=== PATIENT | male | born 2000 | race Caucasian/White ===

== ENCOUNTER 2023-11-19 11:15 | Outpatient (AMB) | payer OTHER, SELFPAY ==
--- NOTE | 2023-11-19 11:24 | AM.OFFWIN_ITS ---
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 Started 3 days ago Patient Tobacco Use Status: Never used Tobacco Allergies No Known Allergies Allergy (Verified 11/19/23 11:24) Do you need a note to return to daycare/school/sports/work: No HPI HPI Comments History of Present Illness Details He presents to office with headaches Aurora like nerve pain into sinuses and R sided eye/forehead Similar pain when scrunching nose Pain was intermittent and mild This am he was showering and used Q tip in ear and felt R sided ear pain with some blood No fever or chills No vision changes Denies hx of headaches. Sometimes has neck pain due to R AC joint pain Ibuprofen used two days ago which helped He admits to congestion recently but denies clogged No fatigue or covid exposure known No cough PFSH Social History Patient Tobacco Use Status: Never used Tobacco Review of Systems Const Denies chills, Denies fatigue, Denies fever(s) and Reports headache(s) Eyes Denies blurry vision, Denies exophthalmos, Denies change in vision, Denies eye discharge, Denies loss of vision, Reports eye pain (Pain around R orbit occasionally) and Denies photophobia ENT Denies dizziness, Reports otalgia (blood in R ear today), Reports headache(s), Reports nasal congestion, Reports sinus pressure and Denies sore throat Card Denies syncope Resp Denies cough Neuro Denies dizziness, Denies syncope, Reports headache(s) and Denies loss of vision Endo Denies fatigue Physical Exam Vital Signs: Last Vital Signs Temp 98.1 F 11/19/23 11:25 Pulse 85 11/19/23 11:25 BP 110/80 11/19/23 11:25 Pulse Ox 98 11/19/23 11:25 Oxygen Delivery Method Room Air 11/19/23 11:25 BMI result Body Mass Index 27.8 General: Non-toxic, NAD. Speaking full sentences. Skin: Warm dry throughout. No facial edema, erythema or rashes Eye: EOMI, PERRL. No pain with EOMs. No conjunctivl erythema or discharge HENT: Airway patent. Uvula midline. No pharyngeal erythema or edema. No INSTRUCTIONAL TECHNOLOGY SPECIALIST. Bilateral canals clear aside from R canal pt has small bright red scab to anterior mid canal. TM non-erythematous, non-bulging. No TM perforation or hemotympanum noted bilaterally. Minimal R sided frontal tenderness to palpation. Respiratory: CTA bilaterally. No wheezes, rales or rhonchi Cardiac: RRR. No murmur MSK: Full ROM extremities. Neurology: A/O No aphasia or facial droop. Gait without abnormality Psych: Good mood and affect Eyes Direct Ophthalmoscopy: No photophobia Assessment & Plan Assessment & Plan (1) Headache: Code(s): R51.9 - Headache, unspecified Qualifiers: Headache type: cluster Headache chronicity pattern: episodic headache Intractability: not intractable Qualified Code(s): G44.019 - Episodic cluster headache, not intractable Plan: Patient seen and evaluated. Non-toxic appearing. No large fluid behind TM and symptoms not consistent with sinusitis Ibuprofen prn S/S of ER concern discussed Patient gave verbal understanding and had no additional questions or concerns at time of discharge All questions answered (2) Abrasion of ear canal: Code(s): S00.419A - Abrasion of unspecified ear, initial encounter Qualifiers: Encounter type: initial encounter Laterality: right Qualified Code(s): S00.411A - Abrasion of right ear, initial encounter Plan: Avoidd Q tip use No OM or OE Coding Level of Care Code New Pt Level 3 (77856) Diagnoses Episodic cluster headache, not intractable G44.019 Headache type: cluster Headache chronicity pattern: episodic headache Intractability: not intractable Abrasion of right ear canal, initial encounter S00.411A Encounter type: initial encounter Laterality: right
[2023-11-19 11:25] VITALS: BP 110/80; PULSE 85; TEMP 36.7; O2SAT 98; BMI 27.8
== END 2023-11-19 12:01 | disposition home or self-care (01) ==
PROVIDERS: PCP Pediatrics; Visit Provider Physician Assistant
DX: G44.019 Episodic cluster headache, not intractable (principal); S00.411A Abrasion of right ear, initial encounter
CPT/HCPCS: 99203

== ENCOUNTER 2025-01-27 18:37 | Emergency (ER) | payer OTHER, SELFPAY ==
--- NOTE | 2025-01-27 19:18 | ED_ITS ---
HPI - Neuro Symptoms/Deficit General Chief Complaint: General Medical Stated Complaint: right side of face drooping feeling Time Seen by Provider: 01/27/25 23:09 Related Data Home Medications ?Medication ?Instructions ?Recorded ?Confirmed No Known Home Meds 11/19/23 11/19/23 Allergies Allergy/AdvReac Type Severity Reaction Status Date / Time No Known Allergies Allergy Verified 01/27/25 19:22 [facility] Social History Social History Patient Tobacco Use Status: Never used Tobacco Advance Directives: No Advance Directives Information Provided: No Do you have a plan to hurt others: No Plan Physical Exam 2 Vital Signs: Vital Signs: Last Vital Signs Temp 98.4 F 01/27/25 21:54 Pulse 76 01/27/25 21:54 Resp 14 01/27/25 21:54 BP 105/61 01/27/25 21:54 Pulse Ox 99 01/27/25 21:54 O2 Del Method Room Air 01/27/25 21:54 BMI result Body Mass Index 18.1 Course Course Course Narrative: This is an RME: Additional HPI, ROS, PE not included below will be deferred to primary provider. RME assessment and note performed by: Agustina De Paz PA-C This is a 27-wwmp-zgs-male who presents to the ER with complaints of right sided facial heaviness since today. Reports he thought he had right sided facial drooping this afternoon. No appreciable neuro signs on examination. NIH stroke scale 0. He is neurologically intact. Pt also examined by Dr. Palomo. At this time no appreciable clinical signs, will defer on imaging at this time. Plan: Labs, further ER eval needed Medical Decision Making Lab Data 01/27/25 19:40 01/27/25 19:40 Labs: Lab Results 01/27/25 Range/Units 19:40 WBC 11.7 H (4.8-10.8) X10*3/uL RBC 5.01 (4.60-5.80) X10*6/uL Hgb 15.5 (14.0-18.0) g/dl Hct 44.1 (42.0-52.0) % MCV 88.0 (80.0-98.0) fL MCH 30.9 (27.0-33.0) pg MCHC 35.1 (31.0-36.0) g/dl RDW 11.6 (11.0-16.0) % Plt Count 315 (160-400) X10*3/uL MPV 9.8 (9.4-12.4) fL Immature Gran % (Auto) 0.3 (0.0-0.4) % Neut % (Auto) 64.2 (45-73) % Lymph % (Auto) 25.3 (20-40) % [place] % (Auto) 8.6 (2-11) % Eos % (Auto) 0.9 (0-4) % Baso % (Auto) 0.7 (0-2) % Lymph # (Auto) 3.0 (1.2-4.9) X10*3/uL [place] # (Auto) 1.0 (0.1-1.2) X10*3/uL Eos # (Auto) 0.1 (0.0-0.4) X10*3/uL Baso # (Auto) 0.1 (0.0-0.2) X10*3/uL Abs Immat Gran (auto) 0.04 H (0.00-0.03) X10*3/uL Absolute Neuts (auto) 7.5 (2.0-8.3) x10*3/uL Absolute Nucleated RBC 0.000 (0.0-0.012) X10*3/uL Nucleated RBC % (auto) 0.0 (0.0-0.2) /100WBC ESR 2 (0-15) MM/HR Sodium 140 (135-145) mmol/L Potassium 4.8 (3.3-5.1) mmol/L Chloride 106 (96-108) mmol/L Carbon Dioxide 29 (22-29) mmol/L Anion Gap 10 L (12-20) BUN 14 (9-16) mg/dL Creatinine 1.17 (0.5-1.4) mg/dL Estim Creat Clear Calc 80.5 Estimated GFR > 60 Random Glucose 105 (60-115) mg/dL Calcium 9.1 (8.4-10.2) mg/dL Magnesium 2.3 (1.6-2.6) mg/dL Total Bilirubin 0.6 (0.0-1.0) mg/dL Direct Bilirubin 0.2 (0.0-0.5) mg/dL AST 45 H (5-37) U/L ALT 29 (0-40) U/L Alkaline Phosphatase 108 (39-117) U/L C-Reactive Protein < 0.10 (< or = 0.50) mg/dL Total Protein 7.5 (6.5-8.0) g/dL Albumin 4.8 (3.5-5.0) g/dL Discharge Plan Discharge Prescriptions: No Action No Known Home Meds Print Language: Afghan
[2025-01-27 19:20] VITALS: BP 134/70; PULSE 68; RESP 16; TEMP 36.8; O2SAT 98; BMI 18.1
[2025-01-27 19:45] LABS: MANUAL DIFF FLAG NO
[2025-01-27 19:46] LABS: Hematocrit 44.1 % (42.0-52.0); Hemoglobin 15.5 g/dl (14.0-18.0); Imm Gran Abs Auto 0.04 X10*3/uL (0.00-0.03); Imm Gran Pct Auto 0.3 % (0.0-0.4); Lymphocytes Absolute Auto 3.0 X10*3/uL (1.2-4.9); Mean Corpuscular HGB Conc 35.1 g/dl (31.0-36.0); Mean Corpuscular Hemoglobin 30.9 pg (27.0-33.0); Mean Corpuscular Volume 88.0 fL (80.0-98.0); NRBC Abs Auto 0.000 X10*3/uL (0.0-0.012); NRBC Pct Auto 0.0 /100WBC (0.0-0.2); Platelet Count 315 X10*3/uL (160-400); Red Blood Count 5.01 X10*6/uL (4.60-5.80); White Blood Count 11.7 X10*3/uL (4.8-10.8)
[2025-01-27 20:04] LABS: Alanine Aminotransferase 29 U/L (0-40); Albumin Level 4.8 g/dL (3.5-5.0); Alkaline Phosphatase 108 U/L (39-117); Anion Gap 10 (12-20); Aspartate Amino Transferase 45 U/L (5-37); Blood Urea Nitrogen 14 mg/dL (9-16); Calcium 9.1 mg/dL (8.4-10.2); Carbon Dioxide 29 mmol/L (22-29); Chloride 106 mmol/L (96-108); Creatinine Clr Calc Pharmacy 80.5; Estimated Glomerular Filt Rate > 60; Magnesium 2.3 mg/dL (1.6-2.6); Potassium 4.8 mmol/L (3.3-5.1); Sodium 140 mmol/L (135-145); Total Protein 7.5 g/dL (6.5-8.0)
[2025-01-27 21:54] VITALS: BP 105/61; PULSE 76; RESP 14; TEMP 36.9; O2SAT 99
--- OUTSIDE RECORDS SUMMARY | 2025-01-27 22:06 | XMS_ITS | Patient Health Record ---
Author Organization [facility] [address] Address [address] [place] [address] Care Team Providers Care Evp Name Role Phone MARIKA FABIAN Unavailable [phone] Allergies No Known Allergies Reason For Referral No Information Medications Medication SIG (Take, Route, Frequency, Duration) Notes Start Date End Date Status Adderall XR 10 MG 1 capsule in the mor magdy Orally Once a day Active Amphetamine-Dextroamphetam ine 10 MG Oral; Duration: 30 Days Acti ve Problems Problem Type SNOMED Code ICD Code Onset Dates Problem Status W/U Status Risk Notes Problem Avitaminosis D (46058685) Avitaminosis D (E55.9) Active confirmed Problem Attention deficit hyperactivity disorder (221776202) ADHD (attention deficit hyperactivity disorder), combined type (F90.2) Active confirmed Vital Signs Heart Rate 68 /min 01/10/2025 Blood pressure diastolic 70 mm Hg 01/10/2025 Oximetry 98 % 01/10/2025 Height 72 in 01/10/2025 Blood pressure systolic 110 mm Hg 01/10/2025 Weight 197.8 lbs 01/10/2025 BMI 26.82 kg/m2 01/10/2025 Encounters Encounter Location Date Provider Diagnosis [facility] [address] [address] 01/10/2025 MARIKA FABIAN Encounter for examination of blood pressure without abnormal findings Z01.30 and ADHD (attention deficit hyperactivity disorder), combined type F90.2 Assessments Encounter Date Diagnosis (ICD Code) Assessment Notes Treatment Notes Treatment Clinical Notes Section Notes 01/10/2025 Encounter for examination of blood pressure without abnormal findings (ICD-10 - Z01.30) Will see the patient back for CPE and comprehensive labs Of note, some information is being carried forward from prior records for informational purposes only and is being cited so that efficiency, safety and quality of the patient's care is not compromised This note was prepared using voice recognition software and direct typing Please excuse inadvertent track inspecting supervisor or typing errors, or uncorrected word substitutions Although every attempt has been made by the provider to proofread this document, occasional misspellings and typographical errors may still be present Due to the previous pandemic, and the use of personal protective equipment (PPE) This may decrease voice recognition accuracy Inadvertent track inspecting supervisor errors may occur 01/10/2025 ADHD (attention deficit hyperactivity disorder), combined type (ICD-10 - F90.2) Will see the patient back for CPE and comprehensive labs Of note, some information is being carried forward from prior records for informational purposes only and is being cited so that efficiency, safety and quality of the patient's care is not compromised This note was prepared using voice recognition software and direct typing Please excuse inadvertent track inspecting supervisor or typing errors, or uncorrected word substitutions Although every attempt has been made by the provider to proofread this document, occasional misspellings and typographical errors may still be present Due to the previous pandemic, and the use of personal protective equipment (PPE) This may decrease voice recognition accuracy Inadvertent track inspecting supervisor errors may occur Plan Of Treatment Pending Test Test Name Order Date LIPID PANEL, STANDARD 01/10/2025 COMPREHENSIVE METABOLIC PANEL 01/10/2025 CBC (INCLUDES DIFF/PLT) 01/10/2025 URINALYSIS, COMPLETE 01/10/2025 HEMOGLOBIN A1c 01/10/2025 TSH 01/10/2025 VITAMIN D,25-OH,TOTAL,IA 01/10/2025 Next Appt Details Provider Name:MARIKA FABIAN, 02/10/2025 02:00:00 PM, [address], [facility] [address], [place], [address], Insurance Providers Payer Name Payer Address Payer Phone Subscriber Number Group Number Insured Name Patient Relationship to Insured Coverage Start Date Coverage End Date [employer] [address] [place] [phone] [id number] CHARLINE VAZQUEZ Self - patient is the insured
--- OUTSIDE RECORDS SUMMARY | 2025-01-27 22:07 | XMS_ITS | Encounter Summary ---
Author Organization [facility] Address [address] [place] [address] Phone Care Team Providers Care Assistant Boiler Operator Name Role Phone Malik Vasquez MD Primary Care Provider Herbert vidales Encounter Details Date Type Department Care Team (Late st Contact Info) Description 06/20/2016 Documentation [facility] [address] [place] [address] Family Medicine, Physician [address] [place] [address] Social History Tobacco Use Types Packs/Day Years Used Date Smoking Tobacco: Never Comments:Never smoker Sex and Gender Information Value Date Recorded Sex Assigned at Not on file Legal Sex Male 5:07 PM EDT Gender Identity Not on file Sexual Orientation Straight 10/26/2019 11 :34 AM EDT documented as of this encounter Plan of Treatment Not on file documented as of this encounter Visit Diagnoses Not on filedocumented in this encounter Care Teams Assistant Boiler Operator Relationship Specialty Start Date End Date Malik Vasquez MD PCP - General Pediatrics 10/13/19 08/12/22 documented as of this encounter
--- OUTSIDE RECORDS SUMMARY | 2025-01-27 22:07 | XMS_ITS | Encounter Summary ---
Author Organization [facility] Address [address] [place] [address] [place] [address] Phone Care Team Providers Care Tailing Machine Operator Name Role Phone Malik Giraldo MD Primary Care Provider [phone] Encounter Details Date Type Department Care Team (Late st Contact Info) Description 05/20/2017 Procedure Pass [address] [place] [address] Social History Tobacco Use Types Packs/Day Years Used Date Smoking Tobacco: Never Smokeless Tobacco: Never Alcohol Use Standard Drinks/Week Comments No 0 (1 standard drink = 0.6 oz pur e alcohol) Sex and Gender Information Value Date Recorded Sex Assigned at Not on file Legal Sex Male 2:41 PM EST Gender Identity Not on file Sexual Orientation Not on file documented as of this encounter Last Filed Vital Signs Vital Sign Reading Time Taken Comments Blood Pressure - - Pulse - - Temperature - - Respiratory Rate - - Oxygen Saturation - - Inhaled Oxygen Concentration - - Weight 83.9 kg (185 lb) 05/22/2017 3:22 PM EST Height 182.9 cm (6') 05/22/2017 3:22 PM EST Body Mass Index 25.09 05/22/2017 3:22 PM EST Body Mass Index Percentile 84.01% 05/22/2017 3:2 2 PM EST Growth Chart: CDC (Boys, 2-2 0 Years) documented in this encounter Plan of Treatment Not on file documented as of this encounter Visit Diagnoses Not on filedocumented in this encounter Care Teams Tailing Machine Operator Relationship Specialty Start Date End Date Malik Giraldo MD [address] [place] [address] [place] [address] PCP - General Pediatrics 05/19/17 documented as of this encounter Additional Source Comments The information contained in this document represents components of the legal health record. It is not the complete legal health record.[facility]
--- OUTSIDE RECORDS SUMMARY | 2025-01-27 22:07 | XMS_ITS | Encounter Summary ---
Author Organization [facility] Address [address] [place] [address] Phone Care Team Providers Care Dental Instrument Maker Name Role Phone Malik Vasquez MD Primary Care Provider Herbert vidales Encounter Details Date Type Department Care Team (Late st Contact Info) Description 12/19/2016 Conversion Encounter [facility] - [address] [address] Social History Tobacco Use Types Packs/Day Years [...] on filedocumented in this encounter Care Teams Dental Instrument Maker Relationship Specialty Start Date End Date Malik Vasquez MD PCP - General Pediatrics 10/13/19 08/12/22 documented as of this encounter
--- OUTSIDE RECORDS SUMMARY | 2025-01-27 22:07 | XMS_ITS | Encounter Summary ---
Author Organization [facility] Address [address] [place] [address] Phone Care Team Providers Care Business Unit Director Name Role Phone Malik Giraldo MD Primary Care Provider [phone]- [phone] Encounter Details Date Type Department Care Team (Late st Contact Info) Description 05/27/2017 Ancillary Orders [facility],Outside Imaging [address] [place] [address] System, Provider Not In, [place] [address] Social History Tobacco Use Types Packs/Day Years [...] on file documented as of this encounter Plan of Treatment Not on file documented as of this encounter Results * XR Upper Extremity Outside (No Interpretation) (05/15/2017 12:15 AM EST) Narrative SYSTEMGENERATED, DOCUMENTATION - 05/27/2017 1:13 PM EST This study is for PACS storage only and not for interpretation. us Provider Not In System PhD IMG OUTSIDE IMAGING W /OUT INTERPRETATION Final Result documented in this encounter Visit Diagnoses Not on filedocumented in this encounter Care Teams Business Unit Director Relationship Specialty Start Date End Date Malik Giraldo MD [address] [place] [address] PCP - General Pediatrics 05/19/17 documented as of this encounter Additional Source Comments The information contained in this document represents components of the legal health record. It is not the complete legal health record.[facility]
--- OUTSIDE RECORDS SUMMARY | 2025-01-27 22:07 | XMS_ITS | Encounter Summary ---
Author Organization [facility] Address [address] [place] [address] Phone Care Team Providers Care Clinical Staff Anesthesiologist Name Role Phone Malik Giraldo MD Primary Care Provider [phone]- [phone] Encounter Details Date Type Department Care Team (Late st Contact Info) Description 05/27/2017 Ancillary Orders [facility],Outside Imaging [address] [place] [address] System, Provider Not In, [place] [address] Social History Tobacco Use Types Packs/Day Years [...] XR Upper Extremity Outside (No Interpretation) (05/15/2017 12:00 AM EST) Narrative SYSTEMGENERATED, DOCUMENTATION - 05/27/2017 1:11 PM EST This study is for PACS storage only and not for interpretation. us Provider Not In System PhD IMG OUTSIDE IMAGING W /OUT INTERPRETATION Final Result documented in this encounter Visit Diagnoses Not on filedocumented in this encounter Care Teams Clinical Staff Anesthesiologist Relationship Specialty Start Date End Date Malik Giraldo MD [address] [place] [address] PCP - General Pediatrics 05/19/17 documented as of this encounter Additional Source Comments The information contained in this document represents components of the legal health record. It is not the complete legal health record.[facility]
--- OUTSIDE RECORDS SUMMARY | 2025-01-27 22:07 | XMS_ITS | Clinical Summary ---
Author Organization [facility] Address [address] [facility] [address] [place] [address] Phone Care Team Providers Care Ceramic Research Engineer Name Role Phone Malik Giraldo MD Primary Care Provider [phone] Allergies No known active allergies Medications No known medications Active Problems Problem Noted Date Diagnosed Date Lesion of right humerus 05/22/2017 Family History Relation Status Comments Father Alive Mother Alive Social History Tobacco Use Types Packs/Day Years Used Date Smoking Tobacco: Never Smokeless Tobacco: Never Alcohol Use Standard Drinks/Week Comments No 0 (1 standard drink = 0.6 oz pur e alcohol) Education Answer Date Recorded Are you interested in more education? Not on kal e 08/30/2022 Are you concerned about learning? Not on file 08/30/2022 No 08/30/2022 No 08/30/2022 Digital Access Answer Date Recorded No 09/28/2022 No 09/28/2022 No 09/28/2022 Reliable internet access at home? Not on file 09/28/2022 Device with a working camera? Not on file Sex and Gender Information Value Date Recorded Sex Assigned at Not on file Legal Sex Male 2:41 PM EST Gender Identity Not on file Sexual Orientation Not on file Last Filed Vital Signs Vital Sign Reading Time Taken Comments Blood Pressure - - Pulse - - Temperature - - Respiratory Rate - - Oxygen Saturation - - Inhaled Oxygen Concentration - - Weight 83.9 kg (185 lb) 05/22/2017 3:22 PM EST Height 182.9 cm (6') 05/22/2017 3:22 PM EST Body Mass Index 25.09 05/22/2017 3:22 PM EST Plan of Treatment Health Maintenance Due Date Last Done Comments DEPRESSION SCREENING 2011 SMOKING Hx and SMOKELESS TOBACCO SCREENING 11/18/2012 HEPATITIS C SCREENING 11/18/2017 HIV ONE-TIME SCREENING (18-65 YEARS) 11/18/2017 Adult Td,Tdap Booster 12/18/2021 12/19/2011 INFLUENZA VACCINE (#1) 2024 , 04/29/2018, 04/29/2017, Additional history exists COVID-19 VACCINE ( season) 2025 HIB VACCINES Completed 11/20/2000, 05/05, 03/24/2000, Additional history exists PNEUMOCOCCAL VACCINES (0-49 years) Aged Out 11/20/2000, 05/21/2000, 03/24/2000, Additional history exists No longer eligible based on patient's age to complete this topic HEPATITIS A VACCINES Completed 01/18/2009, 10/06/19 08 HPV VACCINES Completed 10/03/2015, 03/06, 07/20/2014 MENINGOCOCCAL VACCINES (ACWY) Completed 12/19/2016, 12/19/2011 MENINGOCOCCAL VACCINES (B) Completed 10/26/2020, Medical Devices Not on file Insurance [employer] PPO Member Subscriber Plan / Payer (Ef fective 2016-Present) Name:Arley Vazquez Relation to Subscriber:Child Name:WENDY VAZQUEZ Date of :1959 (Home) Address: [address] Payer ID:[id number] (NAIC) Type:PPO Address: [address] [place] [id number] KELLY Ramirez CIGNA PPO KELLY Ramirez CIGNA PPO CIGNA PPO CIGNA PPO CIGNA PPO Member Subscriber Plan / Payer (Ef fective 2016-Present) Name:Arley Vazquez Relation to Subscriber:Child Name:WENDY VAZQUEZ Date of :1959 (Home) Address: [address] [place] [address] Payer ID:[id number] (NAIC) Type:PPO Address: [address] [place] [id number] KELLY Ramirez CIG[employer]ILMER PPO Care Teams Ceramic Research Engineer Relationship Specialty Start Date End Date Malik Giraldo MD [address] [place] [address] [place] [address] PCP - General Pediatrics 05/19/17 Additional Source Comments The information contained in this document represents components of the legal health record. It is not the complete legal health record.[facility]
--- OUTSIDE RECORDS SUMMARY | 2025-01-27 22:08 | XMS_ITS | Clinical Summary ---
Author Organization [facility] Address [address] [place] [id number] Phone Care Team Providers Care Packer Name Role Phone Unavailable Primary Care Provider Unavailabl e Allergies No known active allergies Medications No known medications Active Problems Problem Noted Date Diagnosed Date Sacral pain 12/23/2019 Overview (12/23/2019): Sacral ileitis vs. Other injury Assessment & Plan (10/27/2020 8:41 AM EDT): resolved Assessment & Plan (12/23/2019 12:50 PM EDT): Will refer. 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 Assessment & Plan (10/26/2019 9:09 AM EDT): Call if ever causes pain Immunizations Immunization Administration Dates Next Due DTaP 11/21/2003, 1,05/21/2000,03/24,01/31/2000 HPV Vaccine 9 Valent 10/03/2015,03/29/2015 HPV, Quadrivalent 07/20/2014 Hep A, ped/adol 01/18/2009,10/06/2007 Hep B, ped/adol 05/21/2000,1999,1999 Hib (PRP-T) 11/20/2000, 1,03/24/2000,01/30 IPV 11/21/2003, 1,03/24/2000,01/30 Influenza, injectable, MDCK, preservative free, quadrivalent 04/25/2016 Influenza, injectable, quadrivalent 03/29/2015,1 Influenza, injectable, quadr ivalent, preservative free 05/10/2020,04/29/2018,04/29/2017,02/24 Influenza, injectable,raimundo valent, preservative free, pediatric 02/15/2009 MMR 11/21/2003,11/20/2000 Meningococcal B Trumenba 10/26/2020,10/26/2019 Meningococcal Conj (Menactra) MCV4P 12/19/2016,0 12/19/2011 Pneumococcal Conjugate 11/20/2000,2000,03/24/2000,01/30 Tdap 12/19/2011 Varicella 01/18/2009,01/18/2001,11/20/2000 Family History Medical History Relation Name Comments No Known Problems Brother marquise No Known Problems Father ilan No Known Problems Maternal Grandfather No Known Problems Maternal Grandmother No Known Problems Mother tom No Known Problems Paternal Grandfather No Known Problems Paternal Grandmother Relation Name Status Comments Brother marquise Alive Brother: Alive and well Father ilan Alive Maternal Grandfather Maternal Grandmother Mother tom Alive Other No family histo ry of ADD/ADHD, No family history of Sudden , No family history of Strabismus, No family history of Deafness, No family history of Stroke, , No family history of Obesity, No family history of Migraines, , No family history of Heart disease, No family history of Seizure disorder Paternal Grandfather Paternal Grandmother Social History Tobacco Use Types Packs/Day Years Used Date Smoking Tobacco: Never Smokeless Tobacco: Never Comments:Never smoker Alcohol Use Standard Drinks/Week Comments Yes 0 (1 standard drink = 0.6 oz pur e alcohol) occ ETOH Hunger/Food Answer Date Recorded In the last 12 months, did y ou or your family ever eat less than you felt you should because there wasn't enough money for food? No 10/26/2020 Stable Housing Answer Date Recorded Are you worried that in the next 2 months you may not have stable housing? No 10/26/2020 Transportation Concerns Answer Date Rec orded In the last 12 months, have you or your family ever had to go without healthcare because you didn't have a way to get there? No 10/26/2020 Hazards in Home Answer Date Recorded Think about the place you li ve. Do you have problems with any of the following? Pests (mice or roaches), mold, no/not working smoke detectors, water leaks, no window guards. No 2020 Financing Utilities Answer Date Recorde d In the last 12 months, has t he electric, gas, oil, or water company threatened to shut off your services in your home? No 10/26/2020 Safety at Home Answer Date Recorded Are you or your family worried about feeling saf e in your home? No 10/26/2020 Outside Support Answer Date Recorded Do you feel that you need mo re support from other people or programs to help you care for yourself or your family? No 10/26/2020 Understanding Health Concerns Answer Da te Recorded Do you need help understandi ng your or your child's healthcare needs (diagnosis, medications, plan, etc.)? No 10/26/2020 Financing Health Concerns Answer Date R ecorded In the last 12 months, was t here a time when your child needed to see a doctor or get medications or supplies but could not because of cost? No 10/26/2020 Missing School or Work Answer Date Tavo rded Did you or your child miss s chool or work because of a health problem that could have been avoided? No 10/26/2020 Sex and Gender Information Value Date Recorded Sex Assigned at Not on file Legal Sex Male 5:07 PM EDT Gender Identity Not on file Sexual Orientation Straight 10/26/2019 11 :34 AM EDT Last Filed Vital Signs Vital Sign Reading Time Taken Comments Blood Pressure 103/62 10/26/2020 9:15 AM EDT Pulse 63 10/26/2020 9:15 AM EDT Temperature 36.6 C (97.8 F) 10/26/2020 9:15 AM EDT Respiratory Rate - - Oxygen Saturation - - Inhaled Oxygen Concentration - - Weight 87.1 kg (192 lb) 10/26/2020 9:15 AM EDT Height 180.3 cm (5' 11 ) 10/26/2020 9:15 AM EDT Body Mass Index 26.78 10/26/2020 9:15 AM EDT Plan of Treatment Health Maintenance Due Date Last Done Comments DTaP,Tdap,and Td Vaccines (7 - Td or Tdap) 12/18/2021 12/19/2011, 11/21/2003, 02/14/2001, Additional history exists Influenza Vaccines (#1) 2024 05/10/19, 04/29/2018, 04/29/2017, Additional history exists COVID-19 Vaccine ( - 2023-2 5 season) 2025 Hepatitis B Vaccines Completed 05/21/2000, 1999, 1999 HIB Vaccines Completed 11/20/2000, 05/05, 03/24/2000, Additional history exists Pneumococcal Vaccine Completed 11/20/2000, 05/21/2000, 03/24/2000, Additional history exists IPV Vaccines Completed 11/21/2003, 02/02, 03/24/2000, Additional history exists MMR Vaccines Completed 11/21/2003, 11/20/2000 Hepatitis A Vaccines Completed 01/18/2009, 10/06/19 08 Varicella Vaccines Completed 01/18/2009, 0 01/18/2001, 11/20/2000 HPV Vaccines Completed 10/03/2015, 03/06, 07/20/2014 Meningococcal Vaccine Completed 12/19/2016, 012 Men B Vaccine Completed 10/26/2020, 10/26/2019 Insurance [employer]
--- NOTE | 2025-01-27 23:10 | ED.GENADULT ---
HPI - General Adult General Chief complaint: General Medical Stated complaint: right side of face drooping feeling Time Seen by Provider: 01/27/25 23:09 Source: patient Mode of arrival: ambulatory Limitations: no limitations History of Present Illness ED Provider: Dr. Palomo HPI narrative: 24-year-old male presented hospital today for right-sided facial numbness. Patient stated that it feels more warm than usual. He is able to have sensation on the right face however it feels abnormal for him. He noticed that the crease between his lips and nose appears to be more prominent in the right side compared to the left side. No facial droop no slurred speech no weakness in the extremities. The patient became concerned therefore he presents to the ER for further evaluation. Related Data Home Medications ?Medication ?Instructions ?Recorded ?Confirmed No Known Home Meds 11/19/23 11/19/23 Allergies Allergy/AdvReac Type Severity Reaction Status Date / Time No Known Allergies Allergy Verified 01/27/25 19:22 Review of Systems Review of Systems: Pertinent review of systems as mentioned in HPI. All other system otherwise negative. [facility] Past Medical History [facility] Narrative: none Social History Social History Alcohol intake: current Alcohol intake frequency: holidays/special occasions only Patient Tobacco Use Status: Never used Tobacco Smoked in Last 30 Days: No Use of substances other than those prescribed or required for medical reasons: Yes Substance Use Type: Marijuana Advance Directives: No Advance Directives Information Provided: No Do you have a plan to hurt others: No Plan Physical Exam ED Exam Exam: General: Pleasant, no distress, interacting appropriately Head: Normacephalic, atraumatic ENT: oral mucosa moist, neck supple, no tracheal deviation Cardiovascular: regular rate, regular rhythm, no murmurs, rubbing, gallops Respiratory: CTAB, no wheeze, rales, rhonchi Neurological: Awake and alert, no facial droop noted Skin: Warm and dry Psychiatric: Appropriate mood and thoughts Vital Signs: Vital Signs - 24 hr 01/27/25 19:20 01/27/25 21:54 01/28/25 00:31 Temperature 98.3 F 98.4 F 98.2 F Pulse Rate 68 76 76 Respiratory Rate 16 14 16 Blood Pressure 134/70 105/61 106/62 Pulse Oximetry 98 99 97 Oxygen Delivery Method Room Air Room Air Room Air BMI result Body Mass Index 18.1 NIH Stroke Scale Internal: Initial- Upon Arrival Level of Consciousness: Alert Level of Consciousness Questions: Answers both questions correctly Level of Consciousness Commands: Performs both tasks correctly Best Gaze: Normal Visual: No visual loss Facial Palsy: Normal Motor Arm (Right): No drift Motor Arm (Left): No drift Motor Leg (Right): No drift Motor Leg (Left): No drift Limb Ataxia: Absent Sensory: Mild to moderate sensory loss Best Language: No aphasia Dysarthia: Normal Extinction and Inattention: No abnormality Score: 1 Medical Decision Making Medical Decision Making [facility] Narrative: 24-year-old male presented hospital today for evaluation of abnormal sensation in the right face. And noticed increased crease on the right side of his face. Patient has no history of hypertension diabetes high cholesterol he has no risk factors for a stroke. He does score 1 on NIH score 4 sensation changes on the right face. However he has no sensation changes in the right upper extremity no sensation changes in the right lower extremity. He has no unilateral symptoms aside from the right facial warmness. I do not appreciate any signs of paralysis on his face. Mom did not appreciate any changes on his face on evaluation as well. I have very low suspicion for stroke in this patient. He is very low risk. At this time we will plan to discharge patient. We will have him follow up with his primary care doctor. I did give him precautions to watch for possible Reaves's palsy versus herpes zoster infection. Differential Diagnosis Differential Diagnoses: The differential diagnosis associated with the presentation includes Herpes zoster, Reaves's palsy, CVA, paresthesia Lab Data [facility] Lab Attestation statement: I reviewed the patient's lab results. 01/27/25 19:40 01/27/25 19:40 Labs: Lab Results 01/27/25 Range/Units 19:40 WBC 11.7 H (4.8-10.8) X10*3/uL RBC 5.01 (4.60-5.80) X10*6/uL Hgb 15.5 (14.0-18.0) g/dl Hct 44.1 (42.0-52.0) % MCV 88.0 (80.0-98.0) fL MCH 30.9 (27.0-33.0) pg MCHC 35.1 (31.0-36.0) g/dl RDW 11.6 (11.0-16.0) % Plt Count 315 (160-400) X10*3/uL MPV 9.8 (9.4-12.4) fL Immature Gran % (Auto) 0.3 (0.0-0.4) % Neut % (Auto) 64.2 (45-73) % Lymph % (Auto) 25.3 (20-40) % [place] % (Auto) 8.6 (2-11) % Eos % (Auto) 0.9 (0-4) % Baso % (Auto) 0.7 (0-2) % Lymph # (Auto) 3.0 (1.2-4.9) X10*3/uL [place] # (Auto) 1.0 (0.1-1.2) X10*3/uL Eos # (Auto) 0.1 (0.0-0.4) X10*3/uL Baso # (Auto) 0.1 (0.0-0.2) X10*3/uL Abs Immat Gran (auto) 0.04 H (0.00-0.03) X10*3/uL Absolute Neuts (auto) 7.5 (2.0-8.3) x10*3/uL Absolute Nucleated RBC 0.000 (0.0-0.012) X10*3/uL Nucleated RBC % (auto) 0.0 (0.0-0.2) /100WBC ESR 2 (0-15) MM/HR Sodium 140 (135-145) mmol/L Potassium 4.8 (3.3-5.1) mmol/L Chloride 106 (96-108) mmol/L Carbon Dioxide 29 (22-29) mmol/L Anion Gap 10 L (12-20) BUN 14 (9-16) mg/dL Creatinine 1.17 (0.5-1.4) mg/dL Estim Creat Clear Calc 80.5 Estimated GFR > 60 Random Glucose 105 (60-115) mg/dL Calcium 9.1 (8.4-10.2) mg/dL Magnesium 2.3 (1.6-2.6) mg/dL Total Bilirubin 0.6 (0.0-1.0) mg/dL Direct Bilirubin 0.2 (0.0-0.5) mg/dL AST 45 H (5-37) U/L ALT 29 (0-40) U/L Alkaline Phosphatase 108 (39-117) U/L C-Reactive Protein < 0.10 (< or = 0.50) mg/dL Total Protein 7.5 (6.5-8.0) g/dL Albumin 4.8 (3.5-5.0) g/dL Discharge Plan Discharge Clinical Impression: Facial paresthesia Patient Disposition: Home, Self-Care Instructions: Paresthesia (ED) Additional Instructions: Follow up with primary care doctor. Watch for any further signs of facial paralysis or rash. Prescriptions: No Action No Known Home Meds Interventions: ED Discharge Assessment Last Done: 01/28/25 00:31 Discharge Date/Time: 01/28/25 00:40 Print Language: [place] Citizen
--- NOTE | 2025-01-27 23:30 | PC.NURSE ---
PT comes from home with complaints of right sided facial drooping that has now resolved. PT symptoms starting in the afternoon, he notes his concern grew when he noted prominence in his nasolabial fold. PT states he does spend time outdoors including hiking, he has not had any flu like symptoms or fevers at home, and denies pain or recent migraines/cluster headaches- he reports a hx of right sided cluster headaches but not recent. On exam, pt airway is patent, Neuros intact. Labs pending. Plan of care ongoing
[2025-01-28 00:31] VITALS: BP 106/62; PULSE 76; RESP 16; TEMP 36.8; O2SAT 97
--- NOTE | 2025-01-28 01:25 | ED_ITS ---
HPI - General Adult General Chief complaint: General Medical Stated complaint: right side of face drooping feeling Time Seen by Provider: 01/27/25 23:09 Source: patient Mode of arrival: ambulatory Limitations: no limitations Related Data Home Medications ?Medication ?Instructions ?Recorded ?Confirmed No Known Home Meds 11/19/23 11/19/23 Allergies Allergy/AdvReac Type Severity Reaction Status Date / Time No Known Allergies Allergy Verified 01/27/25 19:22 [facility] Social History Social History Alcohol intake: current Alcohol intake frequency: holidays/special occasions only Patient Tobacco Use Status: Never used Tobacco Smoked in Last 30 Days: No Use of substances other than those prescribed or required for medical reasons: Yes Substance Use Type: Marijuana Advance Directives: No Advance Directives Information Provided: No Do you have a plan to hurt others: No Plan Physical Exam ED Vital Signs: Vital Signs - 24 hr 01/27/25 19:20 01/27/25 21:54 01/28/25 00:31 Temperature 98.3 F 98.4 F 98.2 F Pulse Rate 68 76 76 Respiratory Rate 16 14 16 Blood Pressure 134/70 105/61 106/62 Pulse Oximetry 98 99 97 Oxygen Delivery Method Room Air Room Air Room Air BMI result Body Mass Index 18.1 Course Course Course Narrative: This is an RME: Additional HPI, ROS, PE not included below will be deferred to primary provider. RME assessment and note performed by: Agustina De Paz PA-C This is a [id number]-male who presents to the ER with complaints of right sided facial heaviness since today. Reports he thought he had right sided facial drooping this afternoon. No appreciable neuro signs on examination. NIH stroke scale 0. He is neurologically intact. Pt also examined by Dr. Palomo. At this time no appreciable clinical signs, will defer on imaging at this time. Plan: Labs, further ER eval needed Medical Decision Making Lab Data 01/27/25 19:40 01/27/25 19:40 Labs: Lab Results 01/27/25 Range/Units 19:40 WBC 11.7 H (4.8-10.8) X10*3/uL RBC 5.01 (4.60-5.80) X10*6/uL Hgb 15.5 (14.0-18.0) g/dl Hct 44.1 (42.0-52.0) % MCV 88.0 (80.0-98.0) fL MCH 30.9 (27.0-33.0) pg MCHC 35.1 (31.0-36.0) g/dl RDW 11.6 (11.0-16.0) % Plt Count 315 (160-400) X10*3/uL MPV 9.8 (9.4-12.4) fL Immature Gran % (Auto) 0.3 (0.0-0.4) % Neut % (Auto) 64.2 (45-73) % Lymph % (Auto) 25.3 (20-40) % [place] % (Auto) 8.6 (2-11) % Eos % (Auto) 0.9 (0-4) % Baso % (Auto) 0.7 (0-2) % Lymph # (Auto) 3.0 (1.2-4.9) X10*3/uL [place] # (Auto) 1.0 (0.1-1.2) X10*3/uL Eos # (Auto) 0.1 (0.0-0.4) X10*3/uL Baso # (Auto) 0.1 (0.0-0.2) X10*3/uL Abs Immat Gran (auto) 0.04 H (0.00-0.03) X10*3/uL Absolute Neuts (auto) 7.5 (2.0-8.3) x10*3/uL Absolute Nucleated RBC 0.000 (0.0-0.012) X10*3/uL Nucleated RBC % (auto) 0.0 (0.0-0.2) /100WBC ESR 2 (0-15) MM/HR Sodium 140 (135-145) mmol/L Potassium 4.8 (3.3-5.1) mmol/L Chloride 106 (96-108) mmol/L Carbon Dioxide 29 (22-29) mmol/L Anion Gap 10 L (12-20) BUN 14 (9-16) mg/dL Creatinine 1.17 (0.5-1.4) mg/dL Estim Creat Clear Calc 80.5 Estimated GFR > 60 Random Glucose 105 (60-115) mg/dL Calcium 9.1 (8.4-10.2) mg/dL Magnesium 2.3 (1.6-2.6) mg/dL Total Bilirubin 0.6 (0.0-1.0) mg/dL Direct Bilirubin 0.2 (0.0-0.5) mg/dL AST 45 H (5-37) U/L ALT 29 (0-40) U/L Alkaline Phosphatase 108 (39-117) U/L C-Reactive Protein < 0.10 (< or = 0.50) mg/dL Total Protein 7.5 (6.5-8.0) g/dL Albumin 4.8 (3.5-5.0) g/dL Discharge Plan Discharge Clinical Impression: Facial paresthesia Patient Disposition: Home, Self-Care Instructions: Paresthesia (ED) Additional Instructions: Follow up with primary care doctor. Watch for any further signs of facial paralysis or rash. Prescriptions: No Action No Known Home Meds Interventions: ED Discharge Assessment Last Done: 01/28/25 00:31 Discharge Date/Time: 01/28/25 00:40 Print Language: [place]
[2025-01-28 09:19] LABS: Lyme Abs Screen <0.90 index
[2025-01-31 16:09] LABS: A. Phagocytophilum Ab IgG <1:64 (<1:64); A. Phagocytophilum Ab IgM <1:20 (<1:20)
== END 2025-01-28 00:40 | disposition home or self-care (01) ==
PROVIDERS: Physician Assistant Medical; Emergency Provider Student in an Organized Health Care Education/Training Program
DX: R29.810 Facial weakness (principal); R20.2 Paresthesia of skin; Z79.899 Other long term (current) drug therapy
CPT/HCPCS: 36415; 80048; 80076; 83735; 85025; 85652; 86140; 86617; 86618; 86666; 86753; 99283; 99284